=== PATIENT | female | born 1945 | race Caucasian/White ===

== ENCOUNTER → 2019-03-29 | Outpatient (CLI) | payer MEDICARE ==
[~2019-03-29] MED LIST: ALIS1TAB4 PO; AMLO10TA4 PO; ATEN100T PO; CHOL500044 PO; CIPR-225 PO; HYDR25TA4 PO; OCUVITE SOFTGE1 EACH PO; PARO10TA81 PO; TURM500C7 PO
--- NOTE | 2019-03-29 09:51 | Diagnostic Imaging Report ---
INDICATION: Right shoulder pain. TIME OF EXAM: 9:22 AM 3 views right shoulder were obtained. FINDINGS: Glenohumeral and acromioclavicular alignment are normal. Acromiohumeral space is normal. No fracture or dislocation is seen. There is bony excrescence arising from the medial aspect of the humeral head. It is uncertain if this represents a large osteophyte versus a osteochondroma. MRI of the right shoulder would be useful for further evaluation. IMPRESSION: 1. No acute bony abnormality is detected. 2. Bony excrescence arising from the proximal humerus medial, perhaps osteochondroma. MRI of the right shoulder would be useful for further evaluation. Dictated by: Dictated on workstation # [id number]
== END ==
LOC: RAD FS 09:19
PROVIDERS: ATTEND Nurse Practitioner
DX: M25.511 Pain in right shoulder (principal)
CPT/HCPCS: 73030

== ENCOUNTER → 2020-02-18 | Outpatient (CLI) | payer MEDICARE ==
--- NOTE | 2020-02-18 09:36 | Diagnostic Imaging Report ---
Indication: Osteoarthritis left knee. Time of exam: 9:15 AM No prior studies are available for comparison. 3 views of the left knee were obtained. There is severe medial and patellofemoral compartmental degenerative change with joint space narrowing and marginal osteophyte formation. Lateral compartments well maintained. Articular surfaces are smooth. No fracture, dislocation or effusion is detected. Impression: Severe medial and patellofemoral compartment degenerative change. No acute bony abnormality is detected. Dictated by: Dictated on workstation # [id number]
== END ==
LOC: RAD FS 09:00
PROVIDERS: ATTEND Nurse Practitioner
DX: M17.12 Unilateral primary osteoarthritis, left knee (principal)
CPT/HCPCS: 73562

== ENCOUNTER 2021-02-06 14:48 | Emergency (ER) | payer MEDICARE ==
[~2021-02-06] VITALS: Ht 162 cm; Wt 59.0 kg
[2021-02-06] MEDS ORDERED: hydrALAZINE (APESOLINE) 20 MG/ML VIAL IV STA (15:04)
[2021-02-06 15:14] LABS: BASOPHILS % (AUTO) 0 % (0-10); EOSINOPHILS % (AUTO) 0 % (0-10); HEMATOCRIT 38 % (35-52); HEMOGLOBIN 12.7 g/dL (11.5-16.0); LYMPHOCYTES # (AUTO) 1.9 X 10^3 (1.0-4.0); LYMPHOCYTES % (AUTO) 25 % (12-44); MEAN CORPUSCULAR HEMOGLOBIN 29 pg (25-34); MEAN CORPUSCULAR HGB CONC 33 g/dL (32-36); MEAN CORPUSCULAR VOLUME 86 fL (80-99); MEAN PLATELET VOLUME 9.5 fL (9.0-12.2); MONOCYTES # (AUTO) 0.6 X 10^3 (0.0-1.0); MONOCYTES % (AUTO) 8 % (0-12); NEUTROPHILS # (AUTO) 4.9 X 10^3 (1.8-7.8); NEUTROPHILS % (AUTO) 67 % (42-75); PLATELET COUNT 228 10^3/uL (130-400); WHITE BLOOD COUNT 7.4 10^3/uL (4.3-11.0)
[2021-02-06 15:17] LABS: INR 1.1 (0.8-1.4); PROTHROMBIN TIME PATIENT 14.6 SEC (12.2-14.7)
--- NOTE | 2021-02-06 15:17 | ED General ---
General Chief Complaint: Cardiac/General Problems Stated Complaint: DIZZINESS; ELEV BP Nursing Triage Note: PT REPORTS SHE HAS BEEN DIZZY OFF AND ON FOR ABOUT A WEEK AND HALF. SHE TOOK HER BLOOD PRESSURE TODAY AND IT WAS 200'S SYSYTOLIC SO SHE CALLED DR TORRES OFFICE AND THE NURSE ADVISED HER TO COME TO ED. SHE USED TO BE ON BP MEDS 4 YEARS AGO BEFORE HER GASTRIC SURGERY BUT WAS TAKEN OFF OF THEM AFTER THE WEIGHT LOSS. SHE REPORTS A SLIGHT HEADACHE EARLIER TODAY. Source of Information: Patient History of Present Illness Date Seen by Provider: Feb 06, 2021 Time Seen by Provider: 14:52 Initial Comments 75-year-old female presenting with over 10 days of intermittent dizziness. She feels like it was worse in the mornings usually. However in the last few days it has been more consistent. She does have a history of high blood pressure but it was greatly improved since she had lost over 100 pounds with gastric bypass surgery. She currently is only taking atenolol 25 mg and that had been doing well for her blood pressures. Today when she was continued to have some dizziness she took her blood pressure at home and it was reading high. When she checked with the clinic her primary care provider, Dr. Wheat, was out of the office but the nurses advised her to take her blood pressure again. At that time she was over 200 for that top number. She did not feel like her blood pressure was not high at home but it scared her so she decided to come in to be seen in the ED. She denies having any nausea, vomiting, chest pain, shortness of breath, chest tightness, blurred vision, numbness or tingling in her arms or legs. She has had a mild intermittent headache. She felt like the dizziness was worse when she tried the move her head such as trying to sit up or stand up. Currently on arrival to the ED she felt like her symptoms were improved. Laying in the bed for the exam she denied having any dizziness at all. Timing/Duration: Intermittent Severity: Mild Modifying Factors: worse with Movement (Standing up and changing positions will make the dizziness worse) Associated Systoms: No Chest Pain, No Cough, No Diaphoresis, No Fever/Chills, No Loss of Appetite, No Malaise, No Nausea/Vomiting, No Rash, No Seizure, No Shortness of Air, No Syncope, No Weakness Allergies and Home Medications Allergies Coded Allergies: amoxicillin (Verified Allergy, Intermediate, GI UPSET, 08/28/15) lisinopril (Verified Allergy, Intermediate, COUGH, 08/28/15) Patient Home Medication List Home Medication List Reviewed: Yes Atenolol (Atenolol) 100 Mg Tablet, 100 MG PO DAILY, (Reported) Entered as Reported by: AMINAH CROSS on 08/28/15 1435 Cholecalciferol (Vitamin D3) (Vitamin D3) 5,000 Unit Tablet, 5,000 UNIT PO DAILY, (Reported) Entered as Reported by: AMINAH CROSS on 08/28/15 1435 Losartan Potassium (Losartan Potassium) 50 Mg Tablet, 50 MG PO DAILY Prescribed by: PUSHPA ELIZONDO on 02/06/21 1634 Nitrofurantoin Macrocrystal (Nitrofurantoin) 100 Mg Capsule, 100 MG PO BID Prescribed by: PUSHPA ELIZONDO on 02/06/21 1634 Turmeric Root Extract (Turmeric) 500 Mg Capsule, 500 MG PO DAILY, (Reported) Entered as Reported by: AMINAH CROSS on 08/28/15 1435 Vit C/Vit E/Lutein/Min/Ryan-3 (Ocuvite Softgel) 1 Each Capsule, 1 EACH PO DAILY, (Reported) Entered as Reported by: AMINAH CROSS on 08/28/15 1435 Discontinued Medications Amlodipine Besylate (Norvasc) 10 Mg Tablet, 10 MG PO DAILY, (Reported) Entered as Reported by: KEVIN HANNON on 09/02/15 0851 Ciprofloxacin HCl (Cipro) 500 Mg Tablet, 500 MG PO BID Prescribed by: BECCA LEE on 09/03/15 1145 Hydrochlorothiazide (Hydrochlorothiazide) 25 Mg Tablet, 25 MG PO DAILY, (Reported) Entered as Reported by: KEVIN HANNON on 09/02/15 0851 Paroxetine HCl (Paxil) 10 Mg Tablet, 10 MG PO HS, (Reported) Entered as Reported by: AMINAH CROSS on 08/28/15 1435 Review of Systems Review of Systems Constitutional: No chills, No diaphoresis; dizziness; No fever, No malaise, No weakness EENTM: No blurred vision, No double vision, No vision loss, No epistaxis, No nose congestion Respiratory: No cough, No short of breath Cardiovascular: No edema, No palpitations Gastrointestinal: see HPI Genitourinary: other (Recent UTI 3 to 4 weeks ago but cleared up after taking C ipro) Musculoskeletal: no symptoms reported Skin: No rash Psychiatric/Neurological: See HPI; Denies Numbness, Denies Paresthesia Hematologic/Lymphatic: Denies Blood Clots Past Hikinop-Txxbpf-Ihcftz Hx Patient Social History Tobacco Use?: No Use of E-Cig and/or Vaping dev: No Substance use?: No Alcohol Use?: No Pt feels they are or have been: No Immunizations Up To Date First/Initial COVID19 Vaccinat: APR 2020 Second COVID19 Vaccination Mik: MAY 2020 COVID19 Vaccine Cancer Registry Manager: ARIELLA Past Medical History Surgery/Hospitalization HX: Gastric bypass Surgeries: Yes Abdominal (Gastric bypass) Respiratory: Yes Sleep Apnea Cardiac: Yes Hypertension Neurological: No Reproductive Disorders: No Sexually Transmitted Disease: No HIV/AIDS: No Genitourinary: No Gastrointestinal: No Musculoskeletal: Yes Arthritis Loss of Vision: Bilateral Hearing Impairment: Denies Anxiety Adverse Reaction/Blood Tranf: No (N/A) Physical Exam Vital Signs Vital Signs - First Documented 02/06/21 14:50 Temp 36.2 Pulse 80 Resp 20 B/P (MAP) 229/91 (137) Pulse Ox 99 O2 Delivery Room Air Capillary Refill : Less Than 3 Seconds Height, Weight, BMI Height: 5'5.00" Weight: 223lbs. 0.0oz. 101.352516az; 22.00 BMI Method: General Appearance: No Apparent Distress, WD/WN Eyes: Bilateral Eye PERRL, Bilateral Eye EOMI HEENT: PERRL/EOMI, Pharynx Normal Neck: Full Range of Motion, Normal Inspection, Non Tender, Supple; No Carotid Bruit Respiratory: Chest Non Tender, Lungs Clear, Normal Breath Sounds, No Accessory Muscle Use, No Respiratory Distress Cardiovascular: Regular Rate, Rhythm, No Murmur, Normal Peripheral Pulses Gastrointestinal: Normal Bowel Sounds, No Pulsatile Mass, Non Tender, Soft Rectal: Deferred Extremity: Normal Capillary Refill, Normal Inspection, No Pedal Edema Neurologic/Psychiatric: Alert, Oriented x3, No Motor/Sensory Deficits, senior vice president and chief information officer II- XII Norm as Tested Skin: Normal Color, Warm/Dry Progress/Results/Core Measures Suspected Sepsis SIRS Temperature: Pulse: 80 Respiratory Rate: 20 Laboratory Tests 02/06/21 14:55: White Blood Count 7.4 Blood Pressure 229 /91 Mean: 137 Laboratory Tests 02/06/21 14:55: Creatinine 0.75, INR Comment 1.1, Platelet Count 228, Total Bilirubin 0.4 Results/Orders Lab Results Laboratory Tests Test 02/06/21 14:55 02/06/21 15:48 Range/Units White Blood Count 7.4 4.3-11.0 10^3/uL Red Blood Count 4.43 3.80-5.11 10^6/uL Hemoglobin 12.7 11.5-16.0 g/dL Hematocrit 38 35-52 % Mean Corpuscular Volume 86 80-99 fL Mean Corpuscular Hemoglobin 29 25-34 pg Mean Corpuscular Hemoglobin Concent 33 32-36 g/dL Red Cell Distribution Width 12.8 10.0-14.5 % Platelet Count 228 130-400 10^3/uL Mean Platelet Volume 9.5 9.0-12.2 fL Neutrophils (%) (Auto) 67 42-75 % Lymphocytes (%) (Auto) 25 12-44 % Monocytes (%) (Auto) 8 0-12 % Eosinophils (%) (Auto) 0 0-10 % Basophils (%) (Auto) 0 0-10 % Neutrophils # (Auto) 4.9 1.8-7.8 X 10^3 Lymphocytes # (Auto) 1.9 1.0-4.0 X 10^3 Monocytes # (Auto) 0.6 0.0-1.0 X 10^3 Eosinophils # (Auto) 0.0 0.0-0.3 10^3/uL Basophils # (Auto) 0.0 0.0-0.1 10^3/uL Prothrombin Time 14.6 12.2-14.7 SEC INR Comment 1.1 0.8-1.4 Activated Partial Thromboplast Time 37 H 24-35 SEC Sodium Level 137 135-145 MMOL/L Potassium Level 4.3 3.6-5.0 MMOL/L Chloride Level 100 98-107 MMOL/L Carbon Dioxide Level 25 21-32 MMOL/L Anion Gap 12 5-14 MMOL/L Blood Urea Nitrogen 10 7-18 MG/DL Creatinine 0.75 0.60-1.30 MG/DL Estimat Glomerular Filtration Rate 76 BUN/Creatinine Ratio 13 Glucose Level 108 H 70-105 MG/DL Calcium Level 9.3 8.5-10.1 MG/DL Corrected Calcium 8.5-10.1 MG/DL Magnesium Level 2.0 1.6-2.4 MG/DL Total Bilirubin 0.4 0.1-1.0 MG/DL Aspartate Amino Transf (AST/SGOT) 24 5-34 U/L Alanine Aminotransferase (ALT/SGPT) 24 0-55 U/L Alkaline Phosphatase 82 40-136 U/L Troponin I < 0.30 <0.30 NG/ML Pro-B-Type Natriuretic Peptide 490.7 H <75.0 PG/ML Total Protein 7.2 6.4-8.2 GM/DL Albumin 4.6 H 3.2-4.5 GM/DL Urine Color STRAW Urine Clarity CLEAR Urine pH 7.5 5-9 Urine Specific [place] 1.015 L 1.016-1.022 Urine Protein NEGATIVE NEGATIVE Urine Glucose (UA) NEGATIVE NEGATIVE Urine Ketones NEGATIVE NEGATIVE Urine Nitrite NEGATIVE NEGATIVE Urine Bilirubin NEGATIVE NEGATIVE Urine Urobilinogen 0.2 < = 1.0 MG/DL Urine Leukocyte Esterase NEGATIVE NEGATIVE Urine RBC (Auto) NEGATIVE NEGATIVE Urine RBC 0-2 /HPF Urine WBC NONE /HPF Urine Squamous Epithelial Cells 2-5 /HPF Urine Crystals NONE /LPF Urine Bacteria MODERATE H /HPF Urine Casts NONE /LPF Urine Mucus NEGATIVE /LPF Urine Culture Indicated YES My Orders Orders - PUSHPA ELIZONDO MD Cbc With Automated Diff (02/06/21 15:04) Magnesium (02/06/21 15:04) Chest 1 View Ap/Pa Only (02/06/21 15:04) Ekg Tracing (02/06/21 15:04) Comprehensive Metabolic Panel (02/06/21 15:04) Protime With Inr (02/06/21 15:04) Partial Thromboplastin Time (02/06/21 15:04) Monitor-Rhythm Ecg Trace Only (02/06/21 15:04) Ed Iv/Invasive Line Start (02/06/21 15:04) Troponin I Fs (02/06/21 15:04) Probnp Fs (02/06/21 15:04) Ct Head Wo (02/06/21 15:04) Hydralazine Injection (Apresoline Inject (02/06/21 15:04) Ua Culture If Indicated (02/06/21 15:08) Urine Culture (02/06/21 15:48) Vital Signs/I&O 02/06/21 02/06/21 14:50 16:26 Temp 36.2 36.1 Pulse 80 73 Resp 20 18 B/P (MAP) 229/91 (137) 180/82 Pulse Ox 99 100 O2 Delivery Room Air Room Air Capillary Refill : Less Than 3 Seconds Blood Pressure Mean: 137 Progress Note #1: Progress Note Electrocardiogram shows no acute ischemic changes. Her blood pressure readings were over 200 systolic here in the ED but she was denying any complaints currently. Will obtain blood work as well as cardiac enzymes, urinalysis, chest x-ray, CT scan of her head. This would be to help evaluate for acute coronary artery disease, acute MD, heart failure, pneumonia, stroke, bleeding, urinary tract infection, pneumonia, brain mass, mediastinal mass, proteinuria. Give hydralazine 10 mg IV while waiting on test results. Patient states that she had previously taken losartan in addition to her atenolol and the clinic was going to start that but she wanted to be seen and evaluated first. Progress Note #2: Time: 15:48 Progress Note Chest x-ray was clear of acute process. CT scan of her head did not show any intracranial hemorrhage or acute process. Labs show no acute significant normality on CBC or chemistry. Cardiac enzymes are not elevated. Her renal function is normal. Her coags do not show any acute significant abnormality. Blood pressure after hydralazine was coming down into the 170s to 180 systolic range. Her last pressure was 183/76. Patient was able to get up and walk to the bathroom without difficulty. Progress Note #3: Time: 16:15 Progress Note After reviewing results with the patient and her spouse they were comfortable with the plan of following up for continued concerns. Add on losartan for blood pressure control. Prescribed Macrobid or nitrofurantoin to treat for bacteria in the urine however she wants to wait until the culture comes back to see if she should start that. We will send a prescription to the pharmacy however if the culture shows she needs a different antibiotic or she needs that will call to let her know once culture is resulted. ECG Initial ECG Impression Date: Feb 06, 2021 Initial ECG Impression Time: 14:53 Initial ECG Rate: 69 Initial ECG Rhythm: Normal Sinus Initial ECG Comparisson: No Previous ECG Available Comment Normal sinus rhythm with a heart rate of 69 bpm. IN interval [address] elevation. QT interval 378 ms with a QTc interval 402 ms. There is no prior tracing available for comparison. Diagnostic Imaging Diagonstic Imaging: Xray Plain Films/CT/US/NM/MRI: chest Comments [facility], [place] NAME: MOUSTAPHA ORDONEZ [facility] REC#: [id number] PT STATUS: REG ER : 1945 PHYSICIAN: PUSHPA ELIZONDO MD ADMIT DATE: 02/06/21/ER FS Draft Date of Exam:02/06/21 CHEST 1 VIEW AP/PA ONLY INDICATION: Dizziness and hypertension. TIME OF EXAM: 3:20 PM No prior studies available for comparison. The heart size is normal and lungs are clear. No infiltrates are seen. There is no effusion or pneumothorax. Postop changes bilateral shoulders are noted. IMPRESSION: No acute cardiopulmonary process is detected. Dictated on workstation # [id number] Dict: 02/06/21 1525 Trans: 02/06/21 1527 CV [id number] Interpreted by: CARY SNYDER MD Electronically signed by: Reviewed: Reviewed by Me Diagonstic Imaging: CT Plain Films/CT/US/NM/MRI: head Comments NAME: MOUSTAPHA ORDONEZ [facility] REC#: [id number] PT STATUS: REG ER : 1945 PHYSICIAN: PUSHPA ELIZONDO MD ADMIT DATE: 02/06/21/ER FS Draft Date of Exam:02/06/21 CT HEAD WO PROCEDURE: CT head without contrast. TECHNIQUE: Multiple contiguous axial images were obtained through the brain without the use of intravenous contrast. Auto Exposure Controls were utilized during the CT exam to meet ALARA standards for radiation dose reduction. INDICATION: Intermittent dizziness and headache. COMPARISON: No prior studies are available for comparison. FINDINGS: Ventricles and sulci are within normal limits. No sulcal effacement or midline shift is identified. No acute intra-axial or extra-axial hemorrhage is detected. Cisterns are patent. Visualized paranasal sinuses are clear. IMPRESSION: No acute intracranial process is detected. Dictated on workstation # [id number] Dict: 02/06/21 1521 Trans: 02/06/21 1524 [id number] Interpreted by: CARY SNYDER MD Electronically signed by: Reviewed: Reviewed by Me Departure Impression Primary Impression: Hypertension Qualified Codes: I10 - Essential (primary) hypertension Additional Impressions: Dizziness Bacteriuria Disposition: HOME, SELF-CARE Condition: Stable Departure-Patient Inst. Decision time for Depature: 16:26 Referrals: DAILY WHEAT MD (PCP/Family) Primary Care Physician Patient Instructions: Dizziness, Adult ED, High Blood Pressure ED, Asymptomatic Bacteriuria Add. Discharge Instructions: Take Losartan 50 mg a day to help supplement the Atenolol 25 mg a day you are already taking. This will help to lower your blood pressures and should help with the dizziness. If you continue to have dizziness you could consider trying some meclizine in case some of this was vertigo. For the bacteria in your urine, if you have the culture come back showing you need the antibiotic you will get a call to tell you. I will send a script to [facility] for Macrobid (Nitrofurantoin), an antibiotic to treat for a bladder infection in case you start having symptoms or the culture shows you need to take the antibiotic. All discharge instructions reviewed with patient and/or family. Voiced understanding. Scripts Nitrofurantoin Macrocrystal (Nitrofurantoin) 100 Mg Capsule 100 MG PO BID for bacteriuria for 7 Days, #14 CAP 0 Refills Prov: PUSHPA ELIZONDO MD 02/06/21 Losartan Potassium (Losartan Potassium) 50 Mg Tablet 50 MG PO DAILY for Blood Pressure for 30 Days, #30 TAB 0 Refills Prov: PUSHPA ELIZONDO MD 02/06/21 PUSHPA ELIZONDO MD Feb 06, 2021 15:17
--- NOTE | 2021-02-06 15:25 | Diagnostic Imaging Report ---
PROCEDURE: CT head without contrast. TECHNIQUE: Multiple contiguous axial images were obtained through the brain without the use of intravenous contrast. Auto Exposure Controls were utilized during the CT exam to meet ALARA standards for radiation dose reduction. INDICATION: Intermittent dizziness and headache. COMPARISON: No prior studies are available for comparison. FINDINGS: Ventricles and sulci are within normal limits. No sulcal effacement or midline shift is identified. No acute intra-axial or extra-axial hemorrhage is detected. Cisterns are patent. Visualized paranasal sinuses are clear. IMPRESSION: No acute intracranial process is detected. Dictated by: Dictated on workstation # [id number]
--- NOTE | 2021-02-06 15:27 | Diagnostic Imaging Report ---
INDICATION: Dizziness and hypertension. TIME OF EXAM: 3:20 PM No prior studies available for comparison. The heart size is normal and lungs are clear. No infiltrates are seen. There is no effusion or pneumothorax. Postop changes bilateral shoulders are noted. IMPRESSION: No acute cardiopulmonary process is detected. Dictated by: Dictated on workstation # [id number]
[2021-02-06 15:31] LABS: ALANINE AMINOTRANSFERASE 24 U/L (0-55); ALBUMIN 4.6 GM/DL (3.2-4.5); ALKALINE PHOSPHATASE 82 U/L (40-136); BILIRUBIN,TOTAL 0.4 MG/DL (0.1-1.0); BUN/CREATININE RATIO 13; CALCIUM 9.3 MG/DL (8.5-10.1); CARBON DIOXIDE 25 MMOL/L (21-32); CHLORIDE 100 MMOL/L (98-107); CREATININE SERUM 0.75 MG/DL (0.60-1.30); GFR ESTIMATED 76; GLUCOSE 108 MG/DL (70-105); POTASSIUM 4.3 MMOL/L (3.6-5.0); SODIUM 137 MMOL/L (135-145); TOTAL PROTEIN 7.2 GM/DL (6.4-8.2)
[2021-02-06 15:53] LABS: BILIRUBIN,URINE NEGATIVE (NEGATIVE); CLARITY,URINE CLEAR; COLOR,URINE STRAW; GLUCOSE, URINE (UA) NEGATIVE (NEGATIVE); KETONES,URINE NEGATIVE (NEGATIVE); LEUKOCYTE ESTERASE ,URINE NEGATIVE (NEGATIVE); NITRITE,URINE NEGATIVE (NEGATIVE); PH,URINE 7.5 (5-9); PROTEIN,URINE NEGATIVE (NEGATIVE); RBC,URINE 0-2 /HPF
[2021-02-06 15:54] LABS: BACTERIA,URINE MODERATE /HPF
[2021-02-06 16:26] VITALS: BP 180/82
[2021-02-06] MEDS ORDERED: LOSA50TA63 PO ×2 (16:31→16:34)
[2021-02-06] MEDS ORDERED: NITR100C PO ×2 (16:32→16:34)
== END 2021-02-06 16:37 | disposition home or self-care (01) ==
LOC: EDUNIT# 14:48 → ER FS 14:49
DX: I10 Essential (primary) hypertension (principal); R42 Dizziness and giddiness; R82.71 Bacteriuria; G47.30 Sleep apnea, unspecified; F41.9 Anxiety disorder, unspecified; Z79.899 Other long term (current) drug therapy
CPT/HCPCS: 36415; 70450; 71045; 80053; 81000; 83735; 83880; 84484; 85025; 85610; 85730; 87088; 93005; 93041; 96374

== ENCOUNTER 2021-11-01 09:28 | Emergency (ER) | payer MEDICARE ==
[~2021-11-01] VITALS: Ht 162.6 cm; Wt 59.9 kg
[~2021-11-01 09:28] MED LIST changes: +LOSA50TA63 PO; +NITR100C PO
[2021-11-01] MEDS ORDERED: cloNIDine 0.2 MG (CATAPRES) TAB PO ONE (10:00)
[2021-11-01] MEDS ORDERED: ALPRAZolam 0.25 MG (XANAX) TAB PO ONE (10:00)
--- NOTE | 2021-11-01 10:13 | ED General ---
General Stated Complaint: ELEV BP; DIZZINESS Source of Information: Patient Exam Limitations: No Limitations History of Present Illness Date Seen by Provider: Nov 01, 2021 Time Seen by Provider: 09:30 Initial Comments Patient is a 76-year-old female who presents with mild headache, shoulder neck and back pain and elevated blood pressure. Patient has history of hypertension which she states has been generally controlled up until 6 months ago. She is currently taking losartan 50 mg in the morning and atenolol 25 mg at night. She states the past 4 days she has had headache and neck and back pain which is co incided with systolic blood pressure greater than 200. Timing/Duration: Other Modifying Factors: improves with Other Allergies and Home Medications Allergies Coded Allergies: amoxicillin (Verified Allergy, Intermediate, GI UPSET, 08/28/15) lisinopril (Verified Allergy, Intermediate, COUGH, 08/28/15) Patient Home Medication List Home Medication List Reviewed: No Atenolol (Atenolol) 100 Mg Tablet, 100 MG PO DAILY, (Reported) Entered as Reported by: AMINAH CROSS on 08/28/15 1435 Cholecalciferol (Vitamin D3) (Vitamin D3) 5,000 Unit Tablet, 5,000 UNIT PO DAILY, (Reported) Entered as Reported by: AMINAH CROSS on 08/28/15 1435 Losartan Potassium (Losartan Potassium) 50 Mg Tablet, 50 MG PO DAILY Prescribed by: PUSHPA ELIZONDO on 02/06/21 1634 Nitrofurantoin Macrocrystal (Nitrofurantoin) 100 Mg Capsule, 100 MG PO BID Prescribed by: PUSHPA ELIZONDO on 02/06/21 1634 Turmeric Root Extract (Turmeric) 500 Mg Capsule, 500 MG PO DAILY, (Reported) Entered as Reported by: AMINAH CROSS on 08/28/15 1435 Vit C/Vit E/Lutein/Min/[place]-3 (Ocuvite Softgel) 1 Each Capsule, 1 EACH PO DAILY, (Reported) Entered as Reported by: AMINAH CROSS on 08/28/15 1435 Review of Systems Review of Systems Constitutional: see HPI Respiratory: see HPI Cardiovascular: see HPI Gastrointestinal: see HPI Genitourinary: see HPI Musculoskeletal: see HPI Skin: see HPI Psychiatric/Neurological: See HPI Hematologic/Lymphatic: See HPI Immunological/Allergic: see HPI All Other Systems Reviewed Negative Unless Noted: No Past Nhykfjn-Fxltgs-Hbyxlo Hx Patient Social History Tobacco Use?: No Immunizations Up To Date First/Initial COVID19 Vaccinat: APR 2020 Second COVID19 Vaccination Mik: MAY 2020 Past Medical History Surgery/Hospitalization HX: Gastric bypass Surgeries: Yes Abdominal Respiratory: Yes Sleep Apnea Cardiac: Yes Hypertension Neurological: No Reproductive Disorders: No Sexually Transmitted Disease: No HIV/AIDS: No Genitourinary: No Gastrointestinal: No Musculoskeletal: Yes Arthritis Loss of Vision: Bilateral Hearing Impairment: Denies Anxiety Adverse Reaction/Blood Tranf: No (N/A) Physical Exam Vital Signs Vital Signs - First Documented 11/01/21 09:43 Temp 37.0 Pulse 75 Resp 18 B/P (MAP) 216/89 (131) O2 Delivery Room Air Capillary Refill : Height, Weight, BMI Height: 5'5.00" Weight: 223lbs. 0.0oz. 101.602385cm; 22.00 BMI Method: General Appearance: No Apparent Distress, WD/WN, Anxious Eyes: Bilateral Eye Normal Inspection, Bilateral Eye PERRL, Bilateral Eye EOMI HEENT: PERRL/EOMI Neck: Normal Inspection Respiratory: Lungs Clear Cardiovascular: Regular Rate, Rhythm Neurologic/Psychiatric: Alert, Oriented x3, No Motor/Sensory Deficits, Normal Mood/Affect Focused Exam Sepsis Stage: Ruled Out Progress/Results/Core Measures Suspected Sepsis SIRS Temperature: Pulse: Respiratory Rate: Blood Pressure / Mean: Results/Orders My Orders Orders - BERNARDINO LAWRENCE DO Clonidine Tablet (Catapres Tablet) (11/01/21 10:00) Alprazolam Tablet (Xanax Tablet) (11/01/21 10:00) Medications Given in ED Current Medications Medications Dose Ordered Sig/Aldair Route Start Time Stop Time Status Last Admin Dose Admin Alprazolam 0.25 mg ONCE ONCE PO 11/01/21 10:00 11/01/21 10:01 DC 11/01/21 10:05 0.25 MG Clonidine HCl 0.2 mg ONCE ONCE PO 11/01/21 10:00 11/01/21 10:01 DC 11/01/21 10:05 0.2 MG Vital Signs/I&O 11/01/21 09:43 Temp 37.0 Pulse 75 Resp 18 B/P (MAP) 216/89 (131) O2 Delivery Room Air Capillary Refill : Departure Communication (Admissions) Patient's blood pressure 145/76 on recheck. Patient resting comfortably. Her symptoms are fully resolved. Recommendations are continuing home daily blood pressure medications with PCP follow-up. Return precautions reviewed. Patient verbalizes understanding agreement discharge instructions prior to departure. Impression Primary Impression: Hypertension Disposition: HOME, SELF-CARE Condition: Stable Departure-Patient Inst. Decision time for Depature: 10:37 Referrals: DAILY WHEAT MD (PCP) Primary Care Physician Add. Discharge Instructions: Please increase morning losartan dose to 100 mg and follow-up with your PCP as scheduled. If you feel dizzy, check your blood pressure hold your next dose of blood pressure medication and contact your PCP for further management. Return to the ED if new or concerning symptoms. BERNARDINO LAWRENCE DO Nov 01, 2021 10:13
[2021-11-01 10:46] VITALS: BP 146/71
== END 2021-11-01 10:46 | disposition home or self-care (01) ==
LOC: EDUNIT# 09:28 → ER FS 09:29
DX: I10 Essential (primary) hypertension (principal); Z79.899 Other long term (current) drug therapy
CPT/HCPCS: 99283

== ENCOUNTER 2022-02-21 11:04 | Emergency (ER) | payer MEDICARE ==
[~2022-02-21] VITALS: Ht 162.5 cm; Wt 60.3 kg
[~2022-02-21 11:04] MED LIST changes: +ACHD5005 PO; +ATEN50TA PO; +LOSA100T57 PO; +MULT1CAP54 PO; +TERB250T88 PO
[2022-02-21 11:08] VITALS: BP 174/89
[2022-02-21] MEDS ORDERED: CIPR500T5 PO ×4 (12:01→16:09)
[2022-02-21] MEDS ORDERED: METR-145 PO ×4 (12:01→16:09)
--- NOTE | 2022-02-21 12:02 | ED Integumentary General ---
General Chief Complaint: Post OP Complications/Pain Stated Complaint: POST OP SURGERY CHECK Nursing Triage Note: PT STATES SHE HAD ABD SURGERY LAST TUESDAY BY DR. RAMESH, CC OF INCISION DRAINAGE Source: patient Exam Limitations: no limitations History of Present Illness Date Seen by Provider: Feb 21, 2022 Time Seen by Provider: 11:31 Initial Comments 76-year-old female presents emerged department today for drainage from her surgical wound. She had a small bowel resection for bowel obstruction on 02/[address] Ramesh. She been doing well until yesterday answered had mild drainage from the superior aspect of the wound. She had a friend of hers who is a nurse look at the wound today and recommended to come to the emergency department. She states that the dressing was just changed prior to arrival and is already saturated. No fevers chills nausea or vomiting. She is not currently taking antibiotics. Allergies and Home Medications Allergies Coded Allergies: amoxicillin (Verified Allergy, Intermediate, GI UPSET, 08/28/15) lisinopril (Verified Allergy, Intermediate, COUGH, 08/28/15) Patient Home Medication List Home Medication List Reviewed: Yes Atenolol (Atenolol) 50 Mg Tablet, 50 MG PO HS, (Reported) Entered as Reported by: HERIBERTO LÓPEZ on 02/12/22 1218 Ciprofloxacin HCl (Ciprofloxacin HCl) 500 Mg Tablet, 500 MG PO TID Prescribed by: JENNI BROOKS MD on 02/21/22 1201 Hydrocodone/Acetaminophen (Hydrocodone-Acetamin 5-325 mg) 5 Mg-325 Mg Tablet, 1 TAB PO Q6H PRN for PAIN-MODERATE (5-7) Prescribed by: JOSE DELATORRE on 02/17/22 1023 Losartan Potassium (Losartan Potassium) 100 Mg Tablet, 100 MG PO DAILY, (Reported) Entered as Reported by: HERIBERTO LÓPEZ on 02/12/22 1218 Metronidazole (Metronidazole) 500 Mg Tablet, 500 MG PO TID Prescribed by: JENNI BROOKS MD on 02/21/22 1201 Multivit-Min/Iron/Folic Acid/K (Bariatric Mv-Iron 45 mg Cap) 45 Mg Iron-800 Mcg- 120 Mcg Capsule, 1 EACH PO DAILY, (Reported) Entered as Reported by: HERIBERTO LÓPEZ on 02/12/22 1218 Terbinafine HCl (Terbinafine HCl) 250 Mg Tablet, 250 MG PO DAILY, (Reported) Entered as Reported by: HERIBERTO LÓPEZ on 02/12/22 1218 Review of Systems Review of Systems Constitutional: no symptoms reported EENTM: no symptoms reported Respiratory: no symptoms reported Cardiovascular: no symptoms reported Gastrointestinal: other (Drainage from abdominal wound) Genitourinary: no symptoms reported Musculoskeletal: no symptoms reported Skin: no symptoms reported Psychiatric/Neurological: No Symptoms Reported Endocrine: No Symptoms Reported Hematologic/Lymphatic: No Symptoms Reported Past Xeiupwn-Vcanmj-Lrvhdw Hx Patient Social History Tobacco Use?: Yes Smoking Status: Former Smoker Substance use?: No Alcohol Use?: Yes Alcohol Frequency: Rarely Immunizations Up To Date Influenza Vaccine Up-to-Date: Yes; Up-to-Date First/Initial COVID19 Vaccinat: APR 2020 Second COVID19 Vaccination Mik: MAY 2020 Third COVID19 Vaccination Date: APR 2020 Past Medical History Surgery/Hospitalization HX: Bariatric Surgery, HTN, Appy, ABD SURGERY, SHOULDER REPLACEMENTS Surgeries: Yes Abdominal, Orthopedic Respiratory: Yes Sleep Apnea Currently Using CPAP: No Currently Using BIPAP: No Cardiac: Yes Hypertension Neurological: No Reproductive Disorders: No Sexually Transmitted Disease: No HIV/AIDS: No Genitourinary: No Gastrointestinal: Yes (malrotation of intestines) Obstructive Bowel Musculoskeletal: Yes Arthritis Endocrine: No HEENT: No Loss of Vision: Bilateral Hearing Impairment: Denies Cancer: No Psychosocial: Yes Anxiety Integumentary: No Blood Disorders: No Adverse Reaction/Blood Tranf: No (N/A) Family Medical History Reviewed Nursing Family Hx Heart Disease Physical Exam Vital Signs Vital Signs - First Documented 02/21/22 11:08 Temp 37.0 Pulse 90 Resp 20 B/P (MAP) 174/89 (117) Pulse Ox 98 O2 Delivery Room Air Capillary Refill : Less Than 3 Seconds General Appearance: WD/WN, no apparent distress HEENT: normal ENT inspection, pharynx normal Neck: non-tender, supple Cardiovascular: regular rate, rhythm, no edema, no gallop, no JVD, no murmur Respiratory: chest non-tender, lungs clear, normal breath sounds, no respiratory distress, no accessory muscle use Gastrointestinal: soft, other (Midline surgical incision with winnie in place. There is large amount of purulence able to be expressed in the superior aspect of the wound. Mild surrounding erythema in the midportion of the incision.) Extremities: non-tender, normal inspection, no pedal edema Neurologic/Psychiatric: alert, normal mood/affect, oriented x 3 Skin: other (As described above) Progress/Results/Core Measures Results/Orders Vital Signs/I&O 02/21/22 11:08 Temp 37.0 Pulse 90 Resp 20 B/P (MAP) 174/89 (117) Pulse Ox 98 O2 Delivery Room Air Blood Pressure Mean: 117 Departure Communication (Admissions) Upon the patient's arrival i spoke to Dr Puga He recommends opening up the wound some and expressing the abscess. States if I am able to get all of the abscess fluid out then she can do wet-to-dry dressings twice a day at home and follow-up with Dr. Ramesh on as previously scheduled. If not recommends admission to the hospital for IV antibiotics. 1200: [address] was able to express all of the purulence from the wound. She tolerated this well without any difficulty. She has no evidence for septic or deeper space infections. Wet-to-dry dressing was placed. Should be discharged home with antibiotics per Dr. Puga recommend Maryjane [place] she has an appointment to follow-up with Dr. Ramesh on which she will keep. Impression Primary Impression: Postoperative wound infection Disposition: HOME, SELF-CARE Condition: Stable Departure-Patient Inst. Referrals: EB RAMESH PANKAJ K MD (PCP/Family) Primary Care Physician Patient Instructions: Wound Care, Wound Infection Add. Discharge Instructions: Take the antibiotics as prescribed until they are gone. Keep your appoint with Dr. Ramesh as scheduled. Change dressing twice a day, more if it is saturated. The emergency department for any fevers vomiting or if your symptoms change in any way concerning to you. Scripts Metronidazole (Metronidazole) 500 Mg Tablet 500 MG PO TID for 10 Days, #30 TAB Prov: JENNI BROOKS DO 02/21/22 Ciprofloxacin HCl (Ciprofloxacin HCl) 500 Mg Tablet 500 MG PO TID for 10 Days, #30 TAB Prov: JENNI BROOKS DO 02/21/22 Metronidazole (Metronidazole) 500 Mg Tablet 500 MG PO TID for 10 Days, #30 TAB Prov: JENNI BROOKS DO 02/21/22 Ciprofloxacin HCl (Ciprofloxacin HCl) 500 Mg Tablet 500 MG PO TID for 10 Days, #30 TAB Prov: JENNI BROOKS DO 02/21/22 JENNI BROOKS DO Feb 21, 2022 12:02
== END 2022-02-21 12:13 | disposition home or self-care (01) ==
LOC: EDUNIT# 11:04 → ER 11:07
DX: T81.41XA Infection following a procedure, superficial incisional surgical site, initial encounter (principal); Z87.891 Personal history of nicotine dependence; Z88.0 Allergy status to penicillin
CPT/HCPCS: 99282